=== PATIENT | male | born 1950 | race Caucasian/White ===

== ENCOUNTER 2024-12-20 06:25 | Day surgery (SDC) | payer OTHER, SELFPAY ==
--- NOTE | 2024-12-16 13:01 | PAT.ANESEVAL ---
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 When Was Last Pacemaker Check QUESTION #4 FULL TEXT: You/Your Family Experience fever (hyperthermia) with Anesthesia Last Oral Intake Last Oral intake: Last Oral Intake NPO since Meds taken in AM with sips of water? 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 Has anyone observed you stop No 12/16/24 09:53 breathing during sleep? STOP Results Negative 12/16/24 09:53 QUESTION #5 FULL TEXT : Do you snore loudly (louder than talking or can be heard through closed doors)? 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 machine operator production: /Reproductive Hx- boring machine operator production Hx Now No 12/16/24 09:53 Gestational Age (in weeks): EDC: Hx Hx Para Hx Section SAB No 12/16/24 09:53 PFSH Medical History (Updated 12/16/24 @ 10:09 by Gina Lynn) Wears hearing aid Wears glasses Loss of consciousness Meningitis spinal Wears dentures Anxiety Low iron Bladder disease High cholesterol Injury of head and neck Heartburn Leg cramps Non-smoker History of echocardiogram History of stress test Cardiology follow-up encounter Pacemaker A-fib Home Medications ?Medication ?Instructions ?Recorded ?Last Taken ?Type apixaban 5 mg tablet 5 mg PO BID 12/08/24 12/16/24 History ascorbic acid (vitamin C) 500 mg 500 mg PO DAILY 12/08/24 Unknown History capsule cholecalciferol (vitamin D3) 50 50 mcg PO QDAY 12/08/24 Unknown History mcg (2,000 unit) capsule mecobalamin (vitamin B12) 1,000 1,000 mcg PO QDAY 12/08/24 Unknown History mcg chewable tablet rosuvastatin 40 mg tablet 40 mg PO QHS 12/08/24 Unknown History sotalol 120 mg tablet 120 mg PO BID 12/08/24 Unknown History tamsulosin 0.4 mg capsule 0.4 mg PO QHS 12/08/24 Unknown History Allergy/AdvReac Type Severity Reaction Status Date / Time No Known Allergies Allergy Verified 12/16/24 09:50 Family History (Updated 12/08/24 @ 14:45 by Saadia Cordero) Mother Colon cancer Diabetes Heart disease Father Cancer Surgical History (Updated 12/16/24 @ 10:09 by Gina Lynn) History of cardiac ablation for atrial fibrillation Hx of colonoscopy Hx of elbow surgery History of cholecystectomy Hx of appendectomy Social History Smoking Status: Never smoker Audit: Pertinent Findings Pertinent Findings EKG Perinent findings: EKG March 09, 2024. Atrial paced rhythm with prolonged A-V conduction with premature atrial complexes Echo (EF%) pertinent findings: Echo 11/02/2020. Left ventricular systolic function is normal. Right ventricular systolic pressure is normal. Consult pertinent findings: Cardiology note status post remote pacemaker implant at outside hospital secondary to SSS Additional pertinent findings: DC pacemaker implanted on 02/27/2021. Underlying rhythm sinus bradycardia 38 bpm. rate responsive on. Bradycardia DDD DR 60 to 115 ppm Recommendation Anesthesia Recommendation Anesthesia recommendation: OPTIMIZED for anesthesia
[2024-12-20] VITALS (8 sets, daily range): BP systolic 99–130; BP diastolic 74–89; PULSE 70; RESP 12–18; TEMP 36.2–36.4; O2SAT 93–99; BMI 29.0
--- OUTSIDE RECORDS SUMMARY | 2024-12-20 06:32 | XMS RPT_ITS | CCD ---
Author Organization [facility] Care Team Providers Care Chief Environmental Commitment Officer Name Role Phone Sohail WHITE, Viji Alaniz Unavailable Carrie MITCHELL-Bety [place] Primary Care Provider 1( [phone] BETY BUTLER Primary Care [facility], [place] Primary Care Provider [facility] Referring Provider Unavailable Erica WHITE, Dr. Sousa Attending Provider Hospital[place] Referring [facility] Primary Care Unavailable Merry Maldonado Attending [facility] Primary Care Unavailable Merry Maldonado Attending Unavailable Medications Current Medications Medication Drug Class(es) Dates Sig (Normalized) Sig (Original) acetaminophen 500 mg oral tablet (1 source) Start: 07-12-2024 End: 07-22-2024 take 1 tablet by mouth every six hours for pain acetaminophen (Tylenol) 500 mg tablet Indications: Closed fracture of left ankle, initial encounter Take 1 tablet (500 mg) by mouth every 6 hours if needed for mild pain (1 - 3) for up to 10 days. 30 tablet 07/12/2024 07/22/2024 Active apixaban 5 mg oral tablet (1 source) Factor Xa Inhibitor Start: 12-08-2024 take 1 tablet by mouth twice daily Apixaban 5 mg tablet Active 5 mg PO TWICE A DAY December 08, 2024 12:00am ascorbic acid 500 mg oral capsule (1 source) Vitamin C Start: 12-08-2024 Ascorbic Acid (Vitamin C) 500 mg capsule Active mg PO December 08, 2024 12:00am cholecalciferol 0.05 mg oral capsule (1 source) Vitamin D Start: 12-08-2024 take 1 capsule by mouth once daily Cholecalciferol (Vitamin D3) 50 mcg (2,000 unit) capsule Active 50 ug PO daily December 08, 2024 12:00am mecobalamin 1 mg chewable tablet (1 source) Start: 12-08-2024 take 1 tablet by mouth once daily Mecobalamin (Vitamin B12) 1,000 mcg tablet,chewable Active 1000 ug PO daily December 08, 2024 12:00am rosuvastatin calcium 40 mg oral tablet (1 source) HMG-CoA Reductase Inhibitor Start: 12-08-2024 take 1 tablet by mouth once daily Rosuvastatin 40 mg tablet Active 40 mg PO daily December 08, 2024 12:00am sotalol hydrochloride 120 mg oral tablet (1 source) Antiarrhythmic Start: 12-08-2024 take 1 tablet by mouth twice daily Sotalol 120 mg tablet Active 120 mg PO TWICE A DAY December 08, 2024 12:00am tamsulosin hydrochloride 0.4 mg oral capsule (1 source) alpha-Adrenergic [place] Start: 12-08-2024 take 1 capsule by mouth once daily Tamsulosin 0.4 mg capsule Active 0.4 mg PO daily December 08, 2024 12:00am vitamin e 100 unt oral capsule (1 source) Start: 12-08-2024 take 1 capsule by mouth once daily Vitamin E (Dl, Acetate) 45 mg (100 unit) capsule Active 45 mg PO daily December 08, 2024 12:00am Problems Problem Classification Problem Date Documented Da te Episodic/Chronic E Codes: Fall (3 sources) Fall; Translations: [Unspecified fall, initial encounter] Onset: 07-12-2024 07-12-2024 Episodic Fracture of lower limb (3 sources) Closed fracture of left ankle; Translations: [Other fracture of left lower leg, initial encounter for closed fracture] Onset: 07-12-2024 07-12-2024 Episodic Other screening for suspected conditions (not mental disorders or infectious disease) (3 sources) History of polyp of colon; Translations: [Encounter for screening for malignant neoplasm of colon] Onset: 12-08-2024 12-08-2024 Episodic Unclassified (1 source) Personal history of colon polyps, unspecified; Translations: [Personal history of colon polyps, unspecified] Onset: 12-08-2024 Results Test Name Value Interpretation Reference Range Facil ity MR/Mell 12-16-2024 MR/[facility] Medical Records Department [address] [place] [address] PAT - Anesthesia 12/16/24 1301 MR#: [id number] Acct: [id number] Name: JAMAL MCINTOSH Rep #: [id number] : 1950 74 From: Darío Angel MD PCP: [place] Hospital Status:PRE SDC Y Race: C Location: [place] Pre-Assessment Diagnosis/Proposed Procedure Planned Operative Procedure(s): CSCOPE Anesthesia History Anesthesia History - healthcare social worker: Anesthesia History - healthcare social worker Hx Hospitalization No 12/16/24 09:53 Any Problems With Anesthesia No 12/16/24 09:53 Cholinesterase deficiency No 12/16/24 09:53 You/Your Family Experience No 12/16/24 09:53 fever (hyperthermia) with Relationship Recent Exposure to Contagious Disease Does patient have nerve No 12/16/24 09:53 stimulator Patient instructed to have device shut off --Does patient have Pacemaker or ICD? When Was Last Pacemaker Check QUESTION #4 FULL TEXT: You/Your Family Experience fever (hyperthermia) with Anesthesia Last Oral Intake Last Oral intake: Last Oral Intake NPO since Meds taken in AM with sips of water? Meds patient instructed to take am of surgery PONV PONV - healthcare social worker: PONV - healthcare social worker Female No 12/16/24 09:53 HX of Motion Sickness No 12/16/24 09:53 HX of N/V After Surgery No 12/16/24 09:53 Non-Smoker Yes 12/16/24 09:53 Duration of Surgery greater No 12/16/24 09:53 than 60 minutes Number of Risk Factors 1 12/16/24 09:53 PONV Score Low Risk 12/16/24 09:53 Respiratory Assessment Respiratory Assessment - healthcare social worker: Respiratory Tract Infection Hx - healthcare social worker Hx Respiratory Tract Infection No 12/16/24 09:53 STOP Sleep Apnea STOP Sleep Apnea - healthcare social worker: STOP Sleep Apnea - healthcare social worker Hx Hypertension No 12/16/24 09:53 Hx Sleep Apnea No 12/16/24 09:53 CPAP BIPAP Do you snore loudly (louder No 12/16/24 09:53 than talking or can be heard Do you often feel tired/ Yes 12/16/24 09:53 fatigued/ sleepy during daytime? Has anyone observed you stop No 12/16/24 09:53 breathing during sleep? STOP Results Negative 12/16/24 09:53 QUESTION #5 FULL TEXT : Do you snore loudly (louder than talking or can be heard through closed doors)? Tobacco Use History Tobacco Use History - healthcare social worker: Tobacco Use History - healthcare social worker Tobacco Use Smoking Status Never smoker 12/16/24 09:53 Hx Tobacco Use No 12/16/24 09:53 Years Smoking Packs Smoked per Day Smoking Cessation Date was within the last 15 years Hx Smoking Cessation Date Hx Smoking Cessation Counseling Hematologic Medial History Hematologic Hx - healthcare social worker: Hematologic Medical Hx - medical technologist chief Hx of Blood Transfusion No 12/16/24 09:53 Hx of Transfusion in last 3 No 12/16/24 09:53 Months Date of Last Transfusion (if within last 3 months) Ever experience any problems No 12/16/24 09:53 with transfusion(s)? Specify any problems Hx of Preganancy in last 3 N/A 12/16/24 09:53 Months Nurse Filling Out Transfusion DSCHRIBER 12/16/24 09:53 Questions: Date: 12/16/24 12/16/24 09:53 Time: 09:55 12/16/24 09:53 Patient unable to answer at this time (ie. confused, unrespo /Reproductio n History /Reproductiv e History - healthcare social worker: /Reproductiv e Hx- healthcare social worker Hx Now No 12/16/24 09:53 Gestational Age (in weeks): EDC: Hx Hx Para Hx Section SAB No 12/16/24 09:53 PFSH Medical History (Updated 12/16/24 @ 10:09 by Gina Lynn) Wears hearing aid Wears glasses Loss of consciousness Meningitis spinal Wears dentures Anxiety Low iron Bladder disease High cholesterol Injury of head and neck Heartburn Leg cramps Non-smoker History of echocardiogram History of stress test Cardiology follow-up encounter Pacemaker A-fib Home Medications ???Medication ???Instructions ???Recorded ???Last Taken ???Type apixaban 5 mg tablet 5 mg PO BID 12/08/24 12/16/24 Hist ory ascorbic acid (vitamin C) 500 mg 500 mg PO DAILY 12/08/24 Unknown H istory capsule cholecalciferol (vitamin D3) 50 50 mcg PO QDAY 12/08/24 Unknown Hi story mcg (2,000 unit) capsule mecobalamin (vitamin B12) 1,000 1,000 mcg PO QDAY 12/08/24 Unknown History mcg chewable tablet rosuvastatin 40 mg tablet 40 mg PO QHS 12/08/24 Unknown Hist ory sotalol 120 mg tablet 120 mg PO BID 12/08/24 Unknown His tory tamsulosin 0.4 mg capsule 0.4 mg PO QHS 12/08/24 Unknown His tory Allergy/AdvReac Type Severity Reaction Status Date / Time No Known Allergies Allerg (more content not included)... Normal [facility] Surgery Visit Reporton 12-08 Surgery Visit Report [facility] [address] [place] [address] OFFICE VISIT Date of Service: 12/08/24 MR#: [id number] Acct: [id number] Name: JAMAL MCINTOSH Rep #: [id number] : 1950 Provider: Dr. Merry cowart MD Age/Sex: 74/M Location: [facility] Status: Signed Intake Vital Signs 12/08/24 14:45 Weight: 196 lb BP 120/70 Blood Pressure Location Rt brachial Position Sitting Respiration 17 Pulse 70 Pulse Source Monitor Temp 97 F L Temp Source Temporal Pulse Oximetry (%) 94 Oxygen Delivery Method room air Intake Visit Reasons: COLONOSCOPY Chief Complaint: colonoscopy Is patient in pain?: No Allergies No Known Allergies Allergy (Verified 12/08/24 14:46) Medications ???Medication ???Instructions ???Recorded ???Confirmed ???Type apixaban 5 mg tablet 5 mg PO BID 12/08/24 12/08/24 Hist ory ascorbic acid (vitamin C) 500 mg mg PO 12/08/24 12/08/24 History capsule cholecalciferol (vitamin D3) 50 50 mcg PO QDAY 12/08/24 12/08/24 H istory mcg (2,000 unit) capsule mecobalamin (vitamin B12) 1,000 1,000 mcg PO QDAY 12/08/24 5 History mcg chewable tablet rosuvastatin 40 mg tablet 40 mg PO QDAY 12/08/24 12/08/24 Hi story sotalol 120 mg tablet 120 mg PO BID 12/08/24 12/08/24 Hi story tamsulosin 0.4 mg capsule 0.4 mg PO QDAY 12/08/24 12/08/24 H istory vitamin E (dl, acetate) 45 mg (100 45 mg PO QDAY 12/08/24 12/08/24 History unit) capsule Have you fallen in the past year?: No PFSH Medical History (Updated 12/08/24 @ 14:44 by Saadia Cordero) Acid reflux Pacemaker A-fib Surgical History (Updated 12/08/24 @ 14:44 by Saadia Cordero) History of cholecystectomy Hx of appendectomy Family History (Updated 12/08/24 @ 14:45 by Saadia Cordero) Mother Colon cancer Diabetes Heart disease Father Cancer HPI HPI HPI: 74-year-old male presents for screening colonoscopy due to history of colon polyps. Patient last colon[facility] was done in 2019 through the [place]. Patient did receive moviprep in the mail. Patient has bowel movements daily denies any blood. Patient does have very occasional reflux maybe once every few months. Patient denies any other chronic abdominal pain/nausea/vomiting. Patient denies any family history of colon cancer. Patient is on Eliquis for A-fib. ROS General General: No weight change, appetite, fatigue, colon cancer, breast cancer or weakness HEENT HEENT: No difficulty swallowing, eye injury, eye surgery, swollen glands or hoarseness Endo Endocrine: No thyroid disease, diabetes mellitus, thyroid cancer, Hair loss, heat intolerance or cold intolerance Skin Skin: No rash or changing moles Musc Musculoskeletal: No back problems, arthritis, rheumatoid arthritis, gout or joint pain Cardio Cardiovascular: Yes pacemaker and atrial fibrillation; No murmur, heart disease, high blood pressure, heart attack, heart stent, palpitations, shortness of breath with exertion or chest pain Psych Psychiatric: No depression, anxiety or hearing voices Resp Respiratory: No shortness of breath, No sleep apnea, No cough, No COPD, No asthma, No emphysema and No wheezing Gastro Gastrointestinal: No abdominal pain, No nausea or vomiting, No diarrhea, No constipation, No blood in stool, Yes acid reflux, No hemorrhoids, No ulcers, No gallbladder problem and No black,tarry stools Henok Hematologic: Yes blood thinners, No blood disorders, No bleeding, No anemia and No blood clots Neuro Neurologic: No system reviewed and no additional complaints, except as documented, No as per HPI, No abnormal gait, No abnormal hearing, No abnormal movements, No abnormal speech, No behavioral changes, No burning sensations, No confusion, No convulsions, No disequilibrium, No dizziness, No localized weakness, No frequent falls, No headache(s), No lack of coordination, No loss of vision, No memory loss, No numbness, No other visual disturbances, No radicular pain, No restless legs, No sensory deficit, No syncope, No tingling, No tremor(s), No weakness and No other Exam Const General: cooperative, healthy appearing, comfortable and no acute distress HENMT Head: normocephalic and atraumatic Neck Neck: supple Resp Effort Inspection: normal respiratory effort Cardio Rate: regular rate GI Inspection: non-distended Palpation: soft and nontender Skin General: no rashes or lesions noted Neuro General: CN's II-XI intact bilaterally Extrem General: normal to inspection Psych Mental Status: mental status grossly normal Attitude: cooperative Assessment and Plan Assessment and Plan (1) Encounter for colonoscopy due to history of colonic polyp: Status: Acute Plan Will patient hold his Eliquis 2 days prior to procedure. Patien (more content not included)... [facility] XR ANKLE LEFT 3+ VIEWSon XR ANKLE LEFT 3+ VIEWS Interpreted By: Miquel Ramos, STUDY: XR ANKLE LEFT 3+ VIEWS; 07/12/2024 10:47 am INDICATION: Signs/Symptoms:pain/i njury. COMPARISON: None. ACCESSION NUMBER(S): [id number] ORDERING CLINICIAN: SEUN MARTINEZ TECHNIQUE: Three views of the left ankle including AP , oblique and lateral projections were obtained. FINDINGS: A mildly displaced oblique fracture is seen through the distal left fibula, with the distal aspect of the fracture line seen at the level of the ankle mortise. Significant overlying soft tissue swelling is present. There is no evidence of additional fracture or dislocation identified. The joint spaces are well preserved without significant degenerative changes. IMPRESSION: 1. Distal left fibular fracture, as above. MACRO: None. Signed by: Miquel Ramos 07/12/2024 10:52 AM Dictation workstation: [id number] [facility] XR Ankle - left 3 Viewson 1. Distal left fibular fracture, as above. MACRO: None. Signed by: Miquel Ramos 07/12/2024 10:52 AM Dictation workstation: [id number] [facility]WALDO Interpreted By: Miquel Ramos, STUDY: XR ANKLE LEFT 3+ VIEWS; 07/12/2024 10:47 am INDICATION: Signs/Symptoms:pain/i njury. COMPARISON: None. ACCESSION NUMBER(S): [id number] ORDERING CLINICIAN: SEUN MARTINEZ TECHNIQUE: Three views of the left ankle including AP , oblique and lateral projections were obtained. FINDINGS: A mildly displaced oblique fracture is seen through the distal left fibula, with the distal aspect of the fracture line seen at the level of the ankle mortise. Significant overlying soft tissue swelling is present. There is no evidence of additional fracture or dislocation identified. The joint spaces are well preserved without significant degenerative changes. MMODAL Miquel Ramos MD - 07/12/2024 Interpreted By: Miquel Ramos, STUDY: XR ANKLE LEFT 3+ VIEWS; 07/12/2024 10:47 am INDICATION: Signs/Symptoms:pain/i njury. COMPARISON: None. ACCESSION NUMBER(S): [id number] ORDERING CLINICIAN: SEUN MARTINEZ TECHNIQUE: Three views of the left ankle including AP , oblique and lateral projections were obtained. FINDINGS: A mildly displaced oblique fracture is seen through the distal left fibula, with the distal aspect of the fracture line seen at the level of the ankle mortise. Significant overlying soft tissue swelling is present. There is no evidence of additional fracture or dislocation identified. The joint spaces are well preserved without significant degenerative changes. IMPRESSION: 1. Distal left fibular fracture, as above. MACRO: None. Signed by: Miquel Ramos 07/12/2024 10:52 AM Dictation workstation: [id number] [facility] Work Phone: Radiology Study observation (narrative) [facility] Work Phone: XR Ankle - left 3 ViewsOrder ed By: Miquel Ramos on 07-12-2024 [facility] Work Phone: Vital Signs Date Time Vital Sign Value Performing Clinician Facility 12-08-2024 14:45-0400 Body temperature 97 [degF] [facility] 12-08-2024 14:45-0400 Body weight 88.9 kg [facility] 12-08-2024 14:45-0400 Diastolic blood pressure 70 mm[Hg] [facility] 12-08-2024 14:45-0400 Heart rate 70 /min [facility] 12-08-2024 14:45-0400 Respiratory rate 17 /min [facility] 12-08-2024 14:45-0400 SaO2% (BldA) [Mass fraction] 94 % [facility] 12-08-2024 14:45-0400 Systolic blood pressure 120 mm[Hg] [facility] 07-12-2024 10:27-0500 Body height 175.3 cm Viji Sauceda MD Work Phone: [facility] 07-12-2024 10:27-0500 Body mass index (BMI) [Ratio] 28.8 kg/m2 Viji Sauceda MD Work Phone: [facility] 07-12-2024 10:27-0500 Body temperature 98.01 [degF] Viji Sauceda MD Work Phone: [facility] 07-12-2024 10:27-0500 Body weight 88.45 kg Viji Sauceda MD Work Phone: [facility] 07-12-2024 10:27-0500 Diastolic blood pressure 74 mm[Hg] Viji Sauceda MD Work Phone: [facility] 07-12-2024 10:27-0500 Heart rate 60 /min Viji Sauceda MD Work Phone: [facility] 07-12-2024 10:27-0500 Respiratory rate 18 /min Viji Sauceda MD Work Phone: [facility] 07-12-2024 10:27-0500 SaO2% (BldA) [Mass fraction] 97 % Viji Sauceda MD Work Phone: [facility] 07-12-2024 10:27-0500 Systolic blood pressure 109 mm[Hg] Viji Sauceda MD Work Phone: [facility] Encounters Encounter Date Encounter Type Care Provider Facility Start: 12-20-2024 [facility] Facility:[facility] Start: 12-08-2024 End: 12-08-[address] Merry Maldonado MD -[facility] Work Phone: Start: 12-08-2024 End: 12-08-2024 [facility] Start: 07-12-2024 End: 07-12-2024 Emergency department patient visit BETY BUTLER [facility] Comment on above: Fall, initial encoun ter (Primary Dx); Closed fracture of left ankle, initial encounter Procedures Date Procedure Procedure Detail Performing Clinician Start: 07-12-2024 Radex ankle complete minimum 3 views Seun Martinez DO Work Phone: Start: 08-04-2020 Follow-up visit Plan of Treatment Date Care Activity Detail Author Start: 2024 RSV High Risk: (Elderly (60+) or Population) (1 - 1-dose 75+ series) RSV High Risk: (Elderly (60+) or Population) (1 - 1-dose 75+ series) [facility] Start: 02-01-2024 COVID-19 Vaccine ( season) COVID-19 Vaccine ( season) [facility] Start: 02-01-2024 Influenza vaccination Influenza Vaccine (#1) [facility] Start: 12-08-1999 Pneumococcal vaccination Pneumococcal Vaccine (1 of 1 - PCV) [facility] Start: 12-08-1999 Zoster Vaccines (1 of 2) Zoster Vaccines (1 of 2) [facility] Start: 12-08-1971 DTaP/Tdap/Td Vaccines (1 - Tdap) DTaP/Tdap/Td Vaccines (1 - Tdap) [facility] Start: 12-08-1967 Hepatitis C screening Hepatitis C Screening [facility] Start: 1950 Lipid panel Lipid Panel [facility] Start: 1950 Screening for malignant neoplasm of colon [facility] Start: 1950 Yearly Adult Physical Yearly Adult Physical [facility] Immunizations Immunization Date Immunization Notes Care Provider Silvia cuba 05-19-2024 influenza virus vaccine, unspecified formulation Viji Sauceda MD Work Phone: [facility] Work Phone: Payers Date Payer Category Payer Medicare [id number] 2024 Unknown [id number] 2024 Self-pay 2024 Unknown [id number] 2017 [employer] [facility] [id number] 2017 Unknown [id number] 1950 Unknown [id number] Unknown [id number] Unknown [id number] Social History Date Type Detail Facility Start: 07-12-2024 Tobacco smoking status NHIS Never smoked tobacco [facility] Work Phone: Start: 07-12-2024 Tobacco use and exposure Smokeless tobacco non-user [facility] Work Phone: Start: 07-12-2024 History of Social function [facility] Work Phone: Start: 07-12-2024 Tobacco use panel [facility] Work Phone: Start: 1950 Sex assigned at Not on file U [facility] Work Phone: Start: 07-02-2024 End: 07-12-2024 Exposure to SARS-CoV-2 (event) Not sure [facility] Work Phone: Tobacco smoking status NHIS Unknown if ever smoked [facility] Work Phone: Start: 1950 Sex Assigned At Male W [facility] Progress note 12-08-2024 Note Date & Type Note Facility 12-08-2024 Progress note [facility] Progress note 12-08-2024 Note Date & Type Note Facility 12-08-2024 Progress note Note Date/Time December 08, 2024 3:06p m [facility] [address] [place] [address]. [address] [place] [address] OFFICE VISIT Date of Service: 12/08/24 MR#: [id number] Acct: [id number] Name: JAMAL MCINTOSH Rep #: [id number] : 1950 Provider: Dr. Glory Maldonado MD Age/Sex: 74/M Location: [facility] Status: Signed Intake Vital Signs 12/08/24 14:45 Weight: 196 lb BP 120/70 Blood Pressure Location Rt brachial Position Sitting Respiration 17 Pulse 70 Pulse Source Monitor Temp 97 F L Temp Source Temporal Pulse Oximetry (%) 94 Oxygen Delivery Method room air Intake Visit Reasons: COLONOSCOPY Chief Complaint: colonoscopy Is patient in pain?: No Allergies No Known Allergies Allergy (Verified 12/08/24 14:46) Medications ?Medication ?Instructions ?Recorded ?Confirmed ?Type apixaban 5 mg tablet 5 mg PO BID 12/08/24 5 History ascorbic acid (vitamin C) 500 mg mg PO 12/08/24 History capsule cholecalciferol (vitamin D3) 50 50 mcg PO QDAY 5 12/08/24 History mcg (2,000 unit) capsule mecobalamin (vitamin B12) 1,000 1,000 mcg PO QDAY 02/2412/08/24 History mcg chewable tablet rosuvastatin 40 mg tablet 40 mg PO QDAY 12/08/2412/08 History sotalol 120 mg tablet 120 mg PO BID 12/08/2412/08 History tamsulosin 0.4 mg capsule 0.4 mg PO QDAY 12/08/2402/24 History vitamin E (dl, acetate) 45 mg (100 45 mg PO QDAY 12/0812/08/24 History unit) capsule Have you fallen in the past year?: No PFSH Medical History (Updated 12/08/24 @ 14:44 by Saadia Cordero) Acid reflux Pacemaker A-fib Surgical History (Updated 12/08/24 @ 14:44 by Saadia Cordero) History of cholecystectomy Hx of appendectomy Family History (Updated 12/08/24 @ 14:45 by Saadia Cordero) Mother Colon cancer Diabetes Heart disease Father Cancer HPI HPI HPI: 74-year-old male presents for screening colonoscopy due to history of colon polyps. Patient last colon[facility] was [facility] [place] 2019 through [facility] [place]. Patient did receive moviprep in the mail. Patient has bowel movements daily denies any blood. Patient does have very occasional reflux maybe once every few months. Patient denies any other chronic abdominal pain/nausea/vomiting. Patient deniesany family history of colon cancer. Patient is on Eliquis for A-fib. ROS General General: No weight change, appetite, fatigue, colon cancer, breast cancer or weakness HEENT HEENT: No difficulty swallowing, eye injury, eye surgery, swollen glands or hoarseness Endo Endocrine: No thyroid disease, diabetes mellitus, thyroid cancer, Hair loss, heat intolerance or cold intolerance Skin Skin: No rash or changing moles Musc Musculoskeletal: No back problems, arthritis, rheumatoid arthritis, gout or joint pain Cardio Cardiovascular: Yes pacemaker and atrial fibrillation; No murmur, heart disease, high blood pressure, heart attack, heart stent, palpitations, shortness of breath with exertion or chest pain Psych Psychiatric: No depression, anxiety or hearing voices Resp Respiratory: No shortness of breath, No sleep apnea, No cough, No COPD, No asthma, No emphysema and No wheezing Gastro Gastrointestinal: No abdominal pain, No nausea or vomiting, No diarrhea, No constipation, No blood in stool, Yes acid reflux, No hemorrhoids, No ulcers, No gallbladder problem and No black,tarry stools Henok Hematologic: Yes blood thinners, No blood disorders, No bleeding, No anemia and No blood clots Neuro Neurologic: No system reviewed and no additional complaints, except as documented, No as per HPI, No abnormal gait, No abnormal hearing, No abnormal movements, No abnormal speech, No behavioral changes, No burning sensations, No confusion, No convulsions, No disequilibrium, No dizziness, No localized weakness, No frequent falls, No headache(s), No lack of coordination, No loss ofvision, No memory loss, No numbness, No other visual disturbances, No radicular pain, No restless legs, No sensory deficit, No syncope, No tingling, No tremor(s), No weakness and No other Exam Const General: cooperative, healthy appearing, comfortable and no acute distress HENMT Head: normocephalic and atraumatic Neck Neck: supple Resp Effort & Inspection: normal respiratory effort Cardio Rate: regular rate GI Inspection: non-distended Palpation: soft and nontender Skin General: no rashes or lesions noted Neuro General: CN's II-XI intact bilaterally Extrem General: normal to inspection Psych Mental Status: mental status grossly normal Attitude: cooperative Assessment and Plan Assessment and Plan (1) Encounter for colonoscopy due to history of colonic polyp: Status: Acute Plan Will patient hold his Eliquis 2 days prior to procedure. Patient states he doesnot care for the taste of moviprep would prefer due to the MiraLAX Dulcolax prep. I have discussed the above with the patient. I have offered the patient colonoscopy for evaluation. I have explained the risks/benefits of the procedure and described the procedure. I have discussed the risks with the patient, including but not limited to: infection, bleeding, perforation of the GI tract requiring emergency surgery, inability to complete the procedure, injury to any internal organs, complications of anesthesia, etc. - the patient understands and agrees to proceed. I have answered all the patient's questions to the patient's satisfaction and the patient has no further questions. The patient has been given instructions for the colon cleansing preparation. MiraLAX Dulcolax Merry Maldonado M.D. Pager: [phone] [facility] [address] [place] [address], [address] [place] [address] Office: [phone] Coding Level of Care Code Off vis,new,level 3 Diagnoses Encounter for colonoscopy due to history of colonic polyp Z12.11; Z86.0100 Clinical Quality Measures Falls Risk Screening/Assistive Devices Have you fallen in the past year?: No 12/08/24 1506 <Electronically signed by Merry Tony am, MD> Date _ Merry Maldonado MD Cosigner Signature: Date (if applicable) CC: [facility] ~ [facility] Work Phone: Physician Emergency department Note 07-12-2024 Bety Buckley PA-C - 07/12/2024 11:08 AM EST Note Date & Type Note Facility 07-12-2024 Physician Emergency department Note HPI Chief Complaint Patient presents with Fall Slipped on ice getting out of vehicle, hit lateral aspect of left ankle. Denies head or neck injury. On Eliquis for a-fib/pacemaker per patient. Has swelling and ecchymosis to left ankle and foot. Tenderness to left lateral ankle. Patient presents with left ankle pain. States he slipped on the ice a few days ago. He recalls twisting the ankle when he did fall. Denies any other injury. No head injury or loss of conscious. No chest pain or shortness of breath. No syncopal episode. Patient states pain is worse with ambulation and movement. Relief at rest. No self treatment. History provided by: Patient Patient History History reviewed. No pertinent past medical history. Past Surgical History: Procedure Laterality Date OTHER SURGICAL HISTORY 06/08/2020 Appendectomy OTHER SURGICAL HISTORY 06/08/2020 Cardioverter defibrillator insertion No family history on file. Social History Tobacco Use Smoking status: Never Smokeless tobacco: Never Substance Use Topics Alcohol use: Not on file Drug use: Never Physical Exam ED Triage Vitals [07/12/24 1027] Temperature Heart Rate Respirations BP 36.7 C (98 F) 60 18 109/74 Pulse Ox Temp src Heart Rate Source Patient Position 97 % -- -- -- BP Location FiO2 (%) -- -- Physical Exam Vitals and nursing note reviewed. Constitutional: General: He is not in acute distress. Appearance: Normal appearance. He is normal weight. He is not ill-appearing or toxic-appearing. HENT: Head: Normocephalic. Right Ear: External ear normal. Left Ear: External ear normal. Nose: Nose normal. Mouth/Throat: Lips: No lesions. Mouth: Mucous membranes are moist. Eyes: General: No scleral icterus. Conjunctiva/sclera: Conjunctivae normal. Cardiovascular: Rate and Rhythm: Normal rate and regular rhythm. Pulses: Dorsalis pedis pulses are 2+ on the right side and 2+ on the left side. Posterior tibial pulses are 2+ on the right side and 2+ on the left side. Heart sounds: Normal heart sounds. Pulmonary: Effort: Pulmonary effort is normal. Breath sounds: Normal breath sounds and air entry. Chest: Chest wall: No tenderness or crepitus. Abdominal: General: Bowel sounds are normal. There is no distension. Palpations: Abdomen is soft. Tenderness: There is no abdominal tenderness. There is no right CVA tenderness, left CVA tenderness or guarding. Musculoskeletal: General: Swelling and tenderness present. Cervical back: No spinous process tenderness or muscular tenderness. Left ankle: Swelling and ecchymosis present. Tenderness present over the lateral malleolus. No medial malleolus, base of 5th metatarsal or proximal fibula tenderness. Decreased range of motion. Normal pulse. Left Achilles Tendon: Normal. Comments: Palpating upper extremities does not elicit any areas of tenderness. The remainder of the left lower extremity did not have any areas of discomfort or tenderness on exam. Right lower extremity is without any areas of tenderness. No midline axial spine tenderness on exam. No step-off deformity. Skin: General: Skin is warm. Capillary Refill: Capillary refill takes less than 2 seconds. Findings: Bruising present. Neurological: General: No focal deficit present. Mental Status: He is alert and oriented to person, place, and time. Cranial Nerves: No cranial nerve deficit or facial asymmetry. Sensory: No sensory deficit. Motor: No weakness. Psychiatric: Attention and Perception: Attention and perception normal. Mood and Affect: Mood and affect normal. Speech: Speech normal. Behavior: Behavior normal. Behavior is cooperative. Thought Content: Thought content normal. Cognition and Memory: Cognition and memory normal. Judgment: Judgment normal. ED Course & MDM Diagnoses as of 07/12/24 1114 Fall, initial encounter Closed fracture of left ankle, initial encounter No data recorded Carroll Coma Scale Score: 15 (07/12/24 1030 : Maury Lewis RN) Medical Decision Making Patient presents with left ankle pain. States he slipped on the ice a few days ago. He recalls twisting the ankle when he did fall. Denies any other injury. No head injury or loss of conscious. No chest pain or shortness of breath. No syncopal episode. Patient states pain is worse with ambulation and movement. Relief at rest. No self treatment. Ddx: Fracture, contusion, strain, sprain, other Will obtain x-rays Fracture noted to the lateral malleolus or distal fibula. Patient placed in walking boot and given crutches. Patient given a prescription for Tylenol per his request. Also prescription that was handwritten for a walker if he would like to use that instead of the crutches. He is instructed to follow-up with orthopedics or podiatry in the next few days. Patient discharged home in improved stable condition Problems Addressed: Closed fracture of left ankle, initial encounter: undiagnosed new problem with uncertain prognosis Fall, initial encounter: acute illness or injury Amount and/or Complexity of Data Reviewed Radiology: ordered and independent interpretation performed. Decision-making details documented in ED Course. Details: Fracture noted Procedure Procedures Bety Buckley PA-C 07/12/24 1114 [facility] Work Phone: Emergency department Note 07-12-2024 Bety Buckley PA-C - 07/12/2024 11:08 AM EST Note Date & Type Note Facility 07-12-2024 Emergency department Note HPI Chief Complaint Patient presents with Fall Slipped on ice getting out of vehicle, hit lateral aspect of left ankle. Denies head or neck injury. On Eliquis for a-fib/pacemaker per patient. Has swelling and ecchymosis to left ankle and foot. Tenderness to left lateral ankle. Patient presents with left ankle pain. States he slipped on the ice a few days ago. He recalls twisting the ankle when he did fall. Denies any other injury. No head injury or loss of conscious. No chest pain or shortness of breath. No syncopal episode. Patient states pain is worse with ambulation and movement. Relief at rest. No self treatment. History provided by: Patient Patient History History reviewed. No pertinent past medical history. Past Surgical History: Procedure Laterality Date OTHER SURGICAL HISTORY 06/08/2020 Appendectomy OTHER SURGICAL HISTORY 06/08/2020 Cardioverter defibrillator insertion No family history on file. Social History Tobacco Use Smoking status: Never Smokeless tobacco: Never Substance Use Topics Alcohol use: Not on file Drug use: Never Physical Exam ED Triage Vitals [07/12/24 1027] Temperature Heart Rate Respirations BP 36.7 C (98 F) 60 18 109/74 Pulse Ox Temp src Heart Rate Source Patient Position 97 % -- -- -- BP Location FiO2 (%) -- -- Physical Exam Vitals and nursing note reviewed. Constitutional: General: He is not in acute distress. Appearance: Normal appearance. He is normal weight. He is not ill-appearing or toxic-appearing. HENT: Head: Normocephalic. Right Ear: External ear normal. Left Ear: External ear normal. Nose: Nose normal. Mouth/Throat: Lips: No lesions. Mouth: Mucous membranes are moist. Eyes: General: No scleral icterus. Conjunctiva/sclera: Conjunctivae normal. Cardiovascular: Rate and Rhythm: Normal rate and regular rhythm. Pulses: Dorsalis pedis pulses are 2+ on the right side and 2+ on the left side. Posterior tibial pulses are 2+ on the right side and 2+ on the left side. Heart sounds: Normal heart sounds. Pulmonary: Effort: Pulmonary effort is normal. Breath sounds: Normal breath sounds and air entry. Chest: Chest wall: No tenderness or crepitus. Abdominal: General: Bowel sounds are normal. There is no distension. Palpations: Abdomen is soft. Tenderness: There is no abdominal tenderness. There is no right CVA tenderness, left CVA tenderness or guarding. Musculoskeletal: General: Swelling and tenderness present. Cervical back: No spinous process tenderness or muscular tenderness. Left ankle: Swelling and ecchymosis present. Tenderness present over the lateral malleolus. No medial malleolus, base of 5th metatarsal or proximal fibula tenderness. Decreased range of motion. Normal pulse. Left Achilles Tendon: Normal. Comments: Palpating upper extremities does not elicit any areas of tenderness. The remainder of the left lower extremity did not have any areas of discomfort or tenderness on exam. Right lower extremity is without any areas of tenderness. No midline axial spine tenderness on exam. No step-off deformity. Skin: General: Skin is warm. Capillary Refill: Capillary refill takes less than 2 seconds. Findings: Bruising present. Neurological: General: No focal deficit present. Mental Status: He is alert and oriented to person, place, and time. Cranial Nerves: No cranial nerve deficit or facial asymmetry. Sensory: No sensory deficit. Motor: No weakness. Psychiatric: Attention and Perception: Attention and perception normal. Mood and Affect: Mood and affect normal. Speech: Speech normal. Behavior: Behavior normal. Behavior is cooperative. Thought Content: Thought content normal. Cognition and Memory: Cognition and memory normal. Judgment: Judgment normal. ED Course & MDM Diagnoses as of 07/12/24 1114 Fall, initial encounter Closed fracture of left ankle, initial encounter No data recorded Carroll Coma Scale Score: 15 (07/12/24 1030 : Maury Lewis RN) Medical Decision Making Patient presents with left ankle pain. States he slipped on the ice a few days ago. He recalls twisting the ankle when he did fall. Denies any other injury. No head injury or loss of conscious. No chest pain or shortness of breath. No syncopal episode. Patient states pain is worse with ambulation and movement. Relief at rest. No self treatment. Ddx: Fracture, contusion, strain, sprain, other Will obtain x-rays Fracture noted to the lateral malleolus or distal fibula. Patient placed in walking boot and given crutches. Patient given a prescription for Tylenol per his request. Also prescription that was handwritten for a walker if he would like to use that instead of the crutches. He is instructed to follow-up with orthopedics or podiatry in the next few days. Patient discharged home in improved stable condition Problems Addressed: Closed fracture of left ankle, initial encounter: undiagnosed new problem with uncertain prognosis Fall, initial encounter: acute illness or injury Amount and/or Complexity of Data Reviewed Radiology: ordered and independent interpretation performed. Decision-making details documented in ED Course. Details: Fracture noted Procedure Procedures Bety Buckley PA-C 07/12/24 1114 documented in this encounter [facility] Work Phone: Hospital Discharge instructions 07-12-2024 Discharge InstructionsAttachments Note Date & Type Note Facility 07-12-2024 Hospital Discharg e instructions Bety Buckley PA-C - 07/12/2024 11:05 AM EST Follow-up with either the binding machine operator or orthopedist listed on your discharge papers. Please call and make an appointment as soon as you can. The following attachments cannot be sent through Care Everywhere.Ankle fracture (Wallisian)documented in this encounter [facility] Work Phone: Evaluation note Note Date & Type Note Facility Evaluation note Diagnosis Fall, initial encounter- Primary Closed fracture of left ankle, initial encounter documented in this encounter [facility] Work Phone: Evaluation note Note Date & Type Note Facility Evaluation note Diagnosis Onset Date Resolution Encounter for colonoscopy due to history of colonic polyp acute December 08, 2024 2 :22pm [facility] Work Phone: Reason for referral (narrative) Note Date & Type Note Facility Reason for referral (narrative) No reason for referral information available [facility] Work Phone: Summary Purpose Family History No Family History Records Found Relationship Condition Age at Onset Recorded Date/T omayra mother Malignant neoplasm of colon Unknown Diabetes mellitus Unknown Cardiac disease Unknown father Malignant neoplasm Unknown Advance Directives No Advanced Directives Records FoundNo Advanced Directives Records FoundNo Advanced Directives Records Found Chief Complaint and Reason for Visit Chief Complaint Admit Date COLONOSCOPY December 08, 2024 2:22p m Reason for Visit Admit Date Encounter for colonoscopy due to history of colonic polyp December 08, 2024 2:22pm Additional Source Comments (unrecognized sect ion and content) No Status Records FoundNo Status Records FoundNo Status Records Found INFORMATION SOURCE (unrecogn ized section and content) DATE CREATED AUTHOR 08/06/2020 [employer] DATE CREATED AUTHOR AUTHOR'S ORGANIZ ATION 07/18/2024 [facility] DATE CREATED AUTHOR AUTHOR'S ORGANIZ ATION 12/19/2024 [facility] Reason for Visit (unrecogniz ed section and content) Reason Comments Fall Slipped on ice getti ng out of vehicle, hit lateral aspect of left ankle. Denies head or neck injury. On Eliquis for a-fib/pacemaker per patient. Has swelling and ecchymosis to left ankle and foot. Tenderness to left lateral ankle. Care Teams (unrecognized sec tion and content) Chief Environmental Commitment Officer Relationship Specialty Start Date End Date Viji Sauceda MD [address] [address] PCP - [facility] [employer] PCP 06/02/22 Bety Butler, VIDEOTAPE RECORDING ENGINEER-CARE WORKER [address] [place] [address] PCP - General Family Medicine 07/12/24 Team Status: Active Member Role/Relationship Status Dates [facility] Primary Care Provider Active Team Status: Inactive Member Role/Relationship Status Dates [facility] Primary Care Provider Active Start: December 08, 2024 End: December 08, 2024 [facility] Referring Provider Active Start: Mariza mendoza 2024 End: December 08, 2024 Dr. Merry Maldonado MD Attending Provider Active Start: December 08, 2024 End: December 08, 2024 Goals (unrecognized section and content) Goals may be documented in a n alternate section FOR RECORDS PERTAINING TO PATIENTS WHO ARE OR HAVE BEEN ENROLLED IN A CHEMICAL DEPENDENCY/SUBSTANCEABUSE PROGRAM, SOME INFORMATION MAY BE OMITTED. This clinical summary was aggregated from multiple sources. Caution should be exercised in using it in the provision of clinical care. This summary normalizes information from multiple sources, and as a consequence, information in this document may materially change the coding, format and clinical context of patient data. In addition, data may be omitted in some cases. CLINICAL DECISIONS SHOULD BE BASED ON THE PRIMARY CLINICAL RECORDS. [email or web address]. provides no warranty or guarantee of the accuracy or completeness of information in this document.
[2024-12-20] MEDS: Lactated Ringers 1,000 ML 15 ML IV (06:45)
--- NOTE | 2024-12-20 07:19 | PCM.PRE.AN2 ---
ASA Classification* ASA Classification ASA Classification: 3 Assessment & Plan Anesthesia* Anesthesia Assessment Anesthesia Assessment: Discussed sedation and/or anesthesia options, risks, benefits, and alternatives with patient/parents/legal guardian/POA. Questions invited. The patient/parents/legal guardian/POA seems to understand and agrees to proceed with anesthesia plan. Reviewed the physical assessment, medical history, allergy history and patient home medications list prior to surgery/procedure/anesthetic and documented any changes. Performed airway and anesthesia risk assessments. Anesthesia Type Anesthesia Type: MAC History Source History Obtained from:: Patient and Chart Anesthesia Focused Assessment* Temperature: 97.2 F Pulse Rate: 70 Blood Pressure: 130/89 Respiratory Rate: 18 Pulse Ox: 99 Oxygen Delivery Method: Room Air Airway Assessment Mouth opens: >3 cm Mallampati Score: I Teeth Condition: Full (Full upper dentures are out.) and Partial (Partial lower dentures are out. 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 When Was Last Pacemaker Check QUESTION #4 FULL TEXT: You/Your Family Experience fever (hyperthermia) with Anesthesia Last Oral Intake Last Oral intake: Last Oral Intake NPO since 03:00 12/20/24 07:08 Meds taken in AM with sips of Yes 12/20/24 07:08 water? Meds patient instructed to take am of surgery Any additional information?: Yes NPO since: 03:00 (Patient texted a.m. meds at 3:00.) Meds taken in AM with sips of water?: Yes PONV PONV - helper steel fabrication: PONV - helper steel fabrication Female No 12/16/24 09:53 HX of Motion Sickness No 12/16/24 09:53 HX of N/V After Surgery No 12/16/24 09:53 Non-Smoker Yes 12/16/24 09:53 Duration of Surgery greater No 12/16/24 09:53 than 60 minutes Number of Risk Factors 1 12/16/24 09:53 PONV Score Low Risk 12/16/24 09:53 Height & Weight Height & Weight: Anesthesia: Height & Weight Height 5 ft 9 in 12/20/24 07:08 Weight: 89.4 kg 12/20/24 07:08 Body Mass Index (BMI) 29.0 12/20/24 07:08 Respiratory Assessment Respiratory Assessment - helper steel fabrication: Respiratory Tract Infection Hx - helper steel fabrication Hx Respiratory Tract Infection No 12/16/24 09:53 STOP Sleep Apnea STOP Sleep Apnea - helper steel fabrication: STOP Sleep Apnea - helper steel fabrication Hx Hypertension No 12/16/24 09:53 Hx Sleep Apnea No 12/16/24 09:53 CPAP BIPAP Do you snore loudly (louder No 12/16/24 09:53 than talking or can be heard Do you often feel tired/ Yes 12/16/24 09:53 fatigued/ sleepy during daytime? Has anyone observed you stop No 12/16/24 09:53 breathing during sleep? STOP Results Negative 12/16/24 09:53 QUESTION #5 FULL TEXT : Do you snore loudly (louder than talking or can be heard through closed doors)? 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 confused, unrespo /Reproduction History /Reproductive History - helper steel fabrication: /Reproductive Hx- helper steel fabrication Hx Now No 12/16/24 09:53 Gestational Age (in weeks): EDC: Hx Hx Para Hx Section SAB No 12/16/24 09:53 Active Medications Active Medications: Current Medications Generic Name Dose Route Start Last Admin Trade Name Freq PRN Reason Stop Dose Admin Lactated Ringer's 1,000 mls @ 15 mls/hr 12/20/24 06:45 12/20/24 06:45 IV 15 mls/hr .Q48H SCARLETT Administration PFSH Medical History Wears hearing aid Wears glasses Loss of consciousness Meningitis spinal Wears dentures Anxiety Low iron Bladder disease High cholesterol Injury of head and neck Heartburn Leg cramps Non-smoker History of echocardiogram History of stress test Cardiology follow-up encounter Pacemaker A-fib Home Medications ?Medication ?Instructions ?Recorded ?Last Taken ?Type apixaban 5 mg tablet 5 mg PO BID 12/08/24 12/17/24 History ascorbic acid (vitamin C) 500 mg 500 mg PO DAILY 12/08/24 12/20/24 History capsule cholecalciferol (vitamin D3) 50 50 mcg PO QDAY 12/08/24 12/20/24 History mcg (2,000 unit) capsule mecobalamin (vitamin B12) 1,000 1,000 mcg PO QDAY 12/08/24 12/20/24 History mcg chewable tablet rosuvastatin 40 mg tablet 40 mg PO QHS 12/08/24 12/19/24 History sotalol 120 mg tablet 120 mg PO BID 12/08/24 12/20/24 History tamsulosin 0.4 mg capsule 0.4 mg PO QHS 12/08/24 12/19/24 History Allergy/AdvReac Type Severity Reaction Status Date / Time No Known Allergies Allergy Verified 12/20/24 07:06 Family History Mother Colon cancer Diabetes Heart disease Father Cancer Surgical History History of cardiac ablation for atrial fibrillation Hx of colonoscopy Hx of elbow surgery History of cholecystectomy Hx of appendectomy Social History Smoking Status: Never smoker Review of Systems (Anesthesia) ROS Narrative System reviewed and no additional complaints, except as documented.
--- NOTE | 2024-12-20 07:26 | HP.PCM_ITS ---
History and Physical Date of Admission: 12/20/24 Date of Service: 12/08/24 MR#: [id number] Acct: [id number] Name: JAMAL MCINTOSH Rep #: [id number] : 1950 Provider: Dr. Merry Maldonado MD Age/Sex: 74/M Location: [facility] Status: Signed Intake Vital Signs 12/08/2513:45 Weight: 196 lb BP 120/70 Blood Pressure Location Rt brachial Position Sitting Respiration 17 Pulse 70 Pulse Source Monitor Temp 97 F L Temp Source Temporal Pulse Oximetry (%) 94 Oxygen Delivery Method room air Intake Visit Reasons: COLONOSCOPY Chief Complaint: colonoscopy Is patient in pain?: No Allergies No Known Allergies Allergy (Verified 12/08/24 14:46) Medications ?Medication ?Instructions ?Recorded ?Confirmed ?Type apixaban 5 mg tablet 5 mg PO BID 12/08/24 12/08/24 History ascorbic acid (vitamin C) 500 mg mg PO 12/08/24 12/08/24 History capsule cholecalciferol (vitamin D3) 50 50 mcg PO QDAY 12/08/24 12/08/24 History mcg (2,000 unit) capsule mecobalamin (vitamin B12) 1,000 1,000 mcg PO QDAY 12/08/24 12/08/24 Hist ory mcg chewable tablet rosuvastatin 40 mg tablet 40 mg PO QDAY 12/08/24 12/08/24 History sotalol 120 mg tablet 120 mg PO BID 12/08/24 12/08/24 History tamsulosin 0.4 mg capsule 0.4 mg PO QDAY 12/08/24 12/08/24 History vitamin E (dl, acetate) 45 mg (100 45 mg PO QDAY 12/08/24 12/08/24 History unit) capsule Have you fallen in the past year?: No PFSH Medical History (Updated 12/08/24 @ 14:44 by Saadia Cordero) Acid reflux Pacemaker A-fib Surgical History (Updated 12/08/24 @ 14:44 by Saadia Cordero) History of cholecystectomy Hx of appendectomy Family History (Updated 12/08/24 @ 14:45 by Saadia Cordero) Mother Colon cancer Diabetes Heart diseaseFather Cancer HPI HPI HPI: 74-year-old male presents for screening colonoscopy due to history of colon polyps. Patient last colonoscopy was done in 2019 through the [place]. Patient did receive moviprep in the mail. Patient has bowel movements daily denies any blood. Patient does have very occasional reflux maybe once every few months. Patient denies any other chronic abdominal pain/nausea/vomiting. Patient denies any family history of colon cancer. Patient is on Eliquis for A-fib. ROS General General: No weight change, appetite, fatigue, colon cancer, breast cancer or weakness HEENT HEENT: No difficulty swallowing, eye injury, eye surgery, swollen glands or hoarseness Endo Endocrine: No thyroid disease, diabetes mellitus, thyroid cancer, Hair loss, heat intolerance or cold intolerance Skin Skin: No rash or changing moles Musc Musculoskeletal: No back problems, arthritis, rheumatoid arthritis, gout or joint pain Cardio Cardiovascular: Yes pacemaker and atrial fibrillation; No murmur, heart disease, high blood pressure, heart attack, heart stent, palpitations, shortness of breath with exertion or chest pain Psych Psychiatric: No depression, anxiety or hearing voices Resp Respiratory: No shortness of breath, No sleep apnea, No cough, No COPD, No asthma, No emphysema and No wheezing Gastro Gastrointestinal: No abdominal pain, No nausea or vomiting, No diarrhea, No constipation, No blood in stool, Yes acid reflux, No hemorrhoids, No ulcers, No gallbladder problem and No black,tarry stools [place] Hematologic: Yes blood thinners, No blood disorders, No bleeding, No anemia and No blood clots Neuro Neurologic: No system reviewed and no additional complaints, except as documented, No as per HPI, No abnormal gait, No abnormal hearing, No abnormal movements, No abnormal speech, No behavioral changes, No burning sensations, No confusion, No convulsions, No disequilibrium, No dizziness, No localized weakness, No frequent falls, No headache(s), No lack of coordination, No loss of vision, No memory loss, No numbness, No other visual disturbances, No radicular pain, No restless legs, No sensory deficit, No syncope, No tingling, No tremor(s), No weakness and No other Exam Const General: cooperative, healthy appearing, comfortable and no acute distress [facility] Head: normocephalic and atraumatic Neck Neck: supple Resp Effort & Inspection: normal respiratory effort Cardio Rate: regular rate GI Inspection: non-distended Palpation: soft and nontender Skin General: no rashes or lesions noted Neuro General: CN's II-XI intact bilaterally Extrem General: normal to inspection Psych Mental Status: mental status grossly normal Attitude: cooperative Assessment and Plan Assessment and Plan (1) Encounter for colonoscopy due to history of colonic polyp: Status: Acute Plan Will patient hold his Eliquis 2 days prior to procedure. Patient states he does not care for the taste of moviprep would prefer due to the MiraLAX Dulcolax prep. I have discussed the above with the patient. I have offered the patient colonoscopy for evaluation. I have explained the risks/benefits of the procedure and described the procedure. I have discussed the risks with the patient, including but not limited to: infection, bleeding, perforation of the GI tract requiring emergency surgery, inability to complete the procedure, injury to any internal organs, complications of anesthesia, etc. - the patient understands and agrees to proceed. I have answered all the patient's questions to the patient's satisfaction and the patient has no further questions. The patient has been given instructions for the colon cleansing preparation. MiraLAX Dulcolax Merry Maldonado M.D. Pager: [phone] [facility] [address] [place] [address], [address] [place] [address] Office: [phone] Coding Level of Care Code Off vis,new,level 3 Diagnoses Encounter for colonoscopy due to history of colonic polyp Z12.11; Z86.0100 Clinical Quality Measures Falls Risk Screening/Assistive Devices Have you fallen in the past year?: No 12/08/24 1506 <Electronically signed by Merry Maldonado MD> Date Merry Maldonado MD
--- NOTE | 2024-12-20 08:00 | COLBX_PTH ---
PATIENT: JAMAL MCINTOSH Sr. LOC: EN U#:[id number] AGE/SX: 74/M ROOM: RE12/20/[address]: Dr. Merry Maldonado MD : 1950 BED: DIS: 12/20/2024 SPEC #: [id number] RECD: 12/20/24 10:01 STATUS: PRICILLA REPatrice #: [id number] KARYN: 12/20/24 08:[address]: Merry Maldonado DEPT: SURGICAL PATHOLOGY RECD BY: Allen Ruff ENTERED: 12/20/24 14:28 SP TYPE: COLON BX OTHR DR: [facility] Tissues: A - Ascending colon B - Rectum, NOS Procedures: Surgery Specimen Level IV HEADER OPERATION: Colonoscopy, polypectomy, hot snare PRE-OP DIAGNOSIS: Encounter for colonoscopy due to history of colonic polyp TISSUE SUBMITTED: A- Ascending colon polyp, B- Rectal polyp MICROSCOPIC DIAGNOSIS A. Ascending colon, polyp, biopsy: * Tubular adenoma. B. Rectum, polyp, biopsy: * Tubulovillous adenoma. MICROSCOPIC DESCRIPTION Slides are reviewed. GROSS DESCRIPTION A. Received in fixative is one container labeled with the patient's name and designated Ascending colon polyp. The specimen consists of one irregular fragment of light jean soft tissue and vegetable material that measures 0.4 cm. The specimen is totally submitted in one cassette. B. Received in fixative is one container labeled with the patient's name and designated Rectal polyp. The specimen consists of one irregular fragment of light jean soft tissue that measures 0.6 cm. The specimen is totally submitted in one cassette. Lynnette 12/20/2024 CPT:03327r5
--- NOTE | 2024-12-20 08:26 | OP.COLON_ITS ---
Patient Name: Myles Bashir Procedure Date: 12/20/2024 7:45 AM Date of : 1950 Age: 74 Procedure: Colonoscopy Indications: High risk colon cancer surveillance: Personal history of colonic polyps Providers: Merry Maldonado MD Medicines: Monitored Anesthesia Care Patient Profile: This is a 74 year old male. Last Colonoscopy: 2019. Complications: No immediate complications. Procedure: Pre-Anesthesia Assessment: - Prior to the procedure, a History and Physical was performed, and patient medications and allergies were reviewed. The patient's tolerance of previous anesthesia was also reviewed. The risks and benefits of the procedure and the sedation options and risks were discussed with the patient. All questions were answered, and informed consent was obtained. Prior Anticoagulants: The patient has taken Eliquis (apixaban), last dose was 3 days prior to procedure. ASA Grade Assessment: Per anesthesia. After reviewing the risks and benefits, the patient was deemed in satisfactory condition to undergo the procedure. After I obtained informed consent, the scope was passed under direct vision. Throughout the procedure, the patient's blood pressure, pulse, and oxygen saturations were monitored continuously. The Colonoscope was introduced through the anus and advanced to the terminal ileum. The colonoscopy was performed without difficulty. The patient tolerated the procedure well. The quality of the bowel preparation was good. Scope In: 7:55:03 AM Scope Withdrawal Time 0 hours 19 minutes 16 seconds Scope Out: 8:20:33 AM Total Procedure Duration Time 0 hours 25 minutes 30 seconds Findings: Non-bleeding internal hemorrhoids were found. The hemorrhoids were Grade I (internal hemorrhoids that do not prolapse). Two semi-pedunculated polyps were found in the rectum and ascending colon. The polyps were 3 to 6 mm in size. These polyps were removed with a hot snare. Resection and retrieval were complete. The exam was otherwise without abnormality. The terminal ileum appeared normal. Impression: - Non-bleeding internal hemorrhoids. - Two 3 to 6 mm polyps in the rectum and in the ascending colon, removed with a hot snare. Resected and retrieved. - The examination was otherwise normal. - The examined portion of the ileum was normal. Recommendation: - Discharge patient to home. - Resume previous diet. - Continue present medications. - Resume Eliquis (apixaban) at prior dose tomorrow. - Await pathology results. - Repeat colonoscopy in 3 - 5 years for surveillance based on pathology results. Procedure Code(s): --- Professional --- 86294, PT, Colonoscopy, flexible; with removal of tumor(s), polyp(s), or other lesion(s) by snare technique Diagnosis Code(s): --- Professional --- Z86.010, Personal history of colonic polyps K64.0, First degree hemorrhoids D12.8, Benign neoplasm of rectum D12.2, Benign neoplasm of ascending colon CPT copyright 2021 [employer]. All rights reserved. The codes documented in this report are preliminary and upon public relations officer review may be revised to meet current compliance requirements. MD Merry William MD 12/20/2024 8:26:01 AM This report has been signed electronically. Number of Addenda: 0 Note Initiated On: 12/20/2024 7:45 AM
--- NOTE | 2024-12-20 08:26 | OP.CCLET_ITS ---
12/20/2024 [facility] Re : Colonoscopy procedure for [facility] This procedure was performed on Friday, December 20, 2024. My impressions and recommendations are as follows: Impressions : - Non-bleeding internal hemorrhoids. - Two 3 to 6 mm polyps in the rectum and in the ascending colon, removed with a hot snare. Resected and retrieved. - The examination was otherwise normal. - The examined portion of the ileum was normal. Recommendations : - Discharge patient to home. - Resume previous diet. - Continue present medications. - Resume Eliquis (apixaban) at prior dose tomorrow. - Await pathology results. - Repeat colonoscopy in 3 - 5 years for surveillance based on pathology results. My findings are described in the full procedure note, which is enclosed. If I can be of further assistance, please feel free to contact me at Doctor phone number(s): , Work: . Sincerely, MD Merry William MD 12/20/2024 8:26:01 AM This report has been signed electronically.
--- NOTE | 2024-12-20 08:28 | PCM.POST.ANE ---
Anesthesia: Postop Eval I Current Vital Signs Temperature: 97.3 F Pulse Rate: 70 Blood Pressure: 104/80 Respiratory Rate: 16 Pulse Ox: 97 Oxygen Delivery Method: Room Air Assessment Airway patent: Yes Spontaneous unlabored respirations: Yes Mental status: Asleep nausea: No Vomiting: No Anesthesia Complication: No Fluid Hydration Crystalloid volume administer (ml): 500 Total IV fluid infused: 500 Progress Note Anesthesia document: Postop Eval 1 completed: Yes
--- NOTE | 2024-12-20 13:43 | PCM.POSTANE2 ---
Anesthesia Postop Eval I Sum Postop Eval Completion status Anesthesia document: Postop Eval 1 completed: Yes Anesthesia Postop Eval I Summary Anesthesia Postop Eval I Summary: Anesthesia Postop Eval I: Assessment Summary Airway patent Yes 12/20/24 08:29 [email or web address] Spontaneous unlabored Yes 12/20/24 08:29 [email or web address] respirations Mental status Asleep 12/20/24 08:29 [email or web address] nausea No 12/20/24 08:29 [email or web address] Vomiting No 12/20/24 08:29 [email or web address] Anesthesia Postop Eval I: Fluid Summary Crystalloid volume administer 500 12/20/24 08:29 [email or web address] (ml) Colloids volume administered ( ml) Blood Product volume administered (ml) Total IV fluid infused 500 12/20/24 08:29 [email or web address] Anesthesia Postop Eval I: Summary Notes Anesthesia Complication No 12/20/24 08:29 [email or web address] Anesthesia Complication Comment: Post-operative progress note Anesthesia: Postop Eval II Evaluation Mental status: Awake and Calm Pain Level: 0 nausea: No Vomiting: No Complications Anesthesia Complication: No
== END 2024-12-20 09:05 | disposition home or self-care (01) ==
LOC: EN 06:30 → AC 06:33
PROVIDERS: Visit Provider Surgery
PROC: 0DJD8ZZ Inspection of Lower Intestinal Tract, Via Natural or Artificial Opening Endoscopic (ICD-10-PCS; CPT 45378; principal; 2024-12-20 07:55)
DX: Z12.11 Encounter for screening for malignant neoplasm of colon (principal); I48.91 Unspecified atrial fibrillation; Z79.01 Long term (current) use of anticoagulants; Z90.49 Acquired absence of other specified parts of digestive tract; Z95.0 Presence of cardiac pacemaker; K64.0 First degree hemorrhoids; K62.1 Rectal polyp; K63.5 Polyp of colon; Z86.0100 Personal history of colon polyps, unspecified
CPT/HCPCS: 45385; 88305; J2405